=== PATIENT | female | born 1990 | race Two or more races ===

== ENCOUNTER → 2019-05-10 | Day surgery (SDC) | payer OTHER ==
[~2019-05-10] MED LIST: SEPTRA DS TABLE1 TAB PO
== END | disposition home or self-care (01) ==
LOC: CIR.AMB 06:38
DX: N93.8 Other specified abnormal uterine and vaginal bleeding (principal)

== ENCOUNTER → 2022-12-07 | Emergency (ER) | payer OTHER ==
[~2022-12-07] VITALS: Ht 170.2 cm; Wt 125.2 kg
== END | disposition left against medical advice (07) ==
LOC: ER 23:02
DX: Z53.21 Procedure and treatment not carried out due to patient leaving prior to being seen by health care provider (principal)

== ENCOUNTER 2023-06-24 00:37 | Emergency (ER) | payer OTHER ==
[~2023-06-24] VITALS: Ht 170.2 cm; Wt 140.2 kg
[2023-06-24] MEDS ORDERED: KETO10TA2 PO (03:34)
[2023-06-24] MEDS ORDERED: CEPHALEXIN500 MG PO (03:34)
== END 2023-06-24 04:36 ==
LOC: ER 00:37
DX: L05.91 Pilonidal cyst without abscess (principal)